=== PATIENT | female | born 1965 | race Caucasian/White ===

== ENCOUNTER 2019-09-05 22:36 | Emergency (ER) | payer OTHER ==
[~2019-09-05] VITALS: Ht 170.2 cm; Wt 121.1 kg
[2019-09-05] MEDS ORDERED: CELEXA 20 MG TA20 MG PO (22:49)
[2019-09-05] MEDS ORDERED: METFORMIN HCL500 M3 PO (22:49)
[2019-09-05] MEDS ORDERED: PRILOSEC OTC20 MG PO (22:50)
[2019-09-05] MEDS ORDERED: DILANTIN100 MG PO (22:50)
[2019-09-05 23:11] LABS: ABSOLUTE BASOPHILS 0.1 thou/uL (0.0-0.2); ABSOLUTE EOSINOPHILS 0.2 thou/uL (0.0-0.7); ABSOLUTE LYMPHOCYTES 3.7 thou/uL (0.8-5.3); ABSOLUTE MONOCYTES 0.5 thou/uL (0.0-1.2); ABSOLUTE NEUTROPHILS 5.4 thou/uL (1.6-8.1); BASOPHILS 0.8 %; EOSINOPHILS 1.6 %; HEMATOCRIT 42.5 % (37.0-47.0); HEMOGLOBIN 14.5 gm/dL (12.0-15.0); LYMPHOCYTES 37.3 %; MCH 28.8 pg (26.0-34.0); MCHC 34.2 g/dL (28.0-37.0); MCV 84.3 fL (80.0-100.0); MONOCYTES 5.1 %; MPV 8.3 fl. (7.2-11.1); NUCLEATED RBCS 0 /100WBC; PLATELET COUNT* 183 thou/uL (150-400); POLYS 55.2 %; RBC 5.05 mil/uL (4.20-5.00); RDW-CV 13.3 % (10.5-14.5); WBC 9.8 thou/uL (4.0-11.0)
[2019-09-05 23:19] LABS: CALCIUM 9.3 mg/dL (8.5-10.1)
[2019-09-05 23:24] LABS: ALBUMIN 4.2 g/dL (3.4-5.0); TOTAL BILIRUBIN 0.2 mg/dL (<0.1-1.0); TOTAL PROTEIN 7.1 g/dL (6.4-8.2)
[2019-09-05] MEDS ORDERED: TYLENOL WITH CO1 TA1 PO (23:33)
[2019-09-05] MEDS ORDERED: FLEXERIL PO (23:33)
[2019-09-05] MEDS ORDERED: HYDROCODON-ACE1 EAC7 PO (23:42)
[2019-09-05 23:59] VITALS: BP 142/72
== END 2019-09-05 23:40 | disposition home or self-care (01) ==
LOC: M.ERS 22:36
PROVIDERS: Emergency Medicine
DX: M54.6 Pain in thoracic spine (principal); K21.9 Gastro-esophageal reflux disease without esophagitis; E11.9 Type 2 diabetes mellitus without complications; F17.210 Nicotine dependence, cigarettes, uncomplicated; Z88.2 Allergy status to sulfonamides

== ENCOUNTER 2021-04-22 13:02 | Emergency (ER) | payer OTHER ==
[~2021-04-22] VITALS: Ht 160 cm; Wt 77.1 kg
[~2021-04-22 13:02] MED LIST: CELEXA 20 MG TA20 MG PO; DILANTIN100 MG PO; FLEXERIL PO; HYDROCODON-ACE1 EAC7 PO; METFORMIN HCL500 M3 PO; PRILOSEC OTC20 MG PO; TYLENOL WITH CO1 TA1 PO
[2021-04-22] MEDS ORDERED: REQUIP5 MG PO (13:19)
[2021-04-22] MEDS ORDERED: CEPHALEXIN500 MG PO (14:09)
[2021-04-22] MEDS ORDERED: IBU600 MG PO (14:09)
[2021-04-22 14:25] VITALS: BP 119/73
== END 2021-04-22 14:26 | disposition home or self-care (01) ==
LOC: M.ERS 13:02
DX: S61.217A Laceration without foreign body of left little finger without damage to nail, initial encounter (principal); K21.9 Gastro-esophageal reflux disease without esophagitis; F17.210 Nicotine dependence, cigarettes, uncomplicated; Z88.2 Allergy status to sulfonamides; Z79.899 Other long term (current) drug therapy; W26.8XXA Contact with other sharp object(s), not elsewhere classified, initial encounter; Y93.89 Activity, other specified; Y92.69 Other specified industrial and construction area as the place of occurrence of the external cause; Y99.9 Unspecified external cause status

== ENCOUNTER 2021-04-29 08:19 | Emergency (ER) | payer OTHER ==
[~2021-04-29] VITALS: Ht 160 cm; Wt 77.1 kg
[~2021-04-29 08:19] MED LIST changes: +CEPHALEXIN500 MG PO; +IBU600 MG PO; +REQUIP5 MG PO
[2021-04-29 08:53] VITALS: BP 111/53
== END 2021-04-29 08:54 | disposition home or self-care (01) ==
LOC: M.ERS 08:19
DX: S61.217D Laceration without foreign body of left little finger without damage to nail, subsequent encounter (principal); K21.9 Gastro-esophageal reflux disease without esophagitis; F17.210 Nicotine dependence, cigarettes, uncomplicated; Z79.899 Other long term (current) drug therapy; Z88.2 Allergy status to sulfonamides; X58.XXXD Exposure to other specified factors, subsequent encounter